=== PATIENT | male | born 1980 | race Caucasian/White ===

== ENCOUNTER 2017-06-23 16:50 | Inpatient (IN) | payer OTHER ==
[~2017-06-23] VITALS: Ht 188 cm; Wt 103.4 kg
[~2017-06-23 16:50] MED LIST: HYDR-4003 PO
[2017-06-23 16:57] VITALS: BP 123/79; PULSE 82; RESP 18; O2SAT 98
[2017-06-23 17:27] LABS: BASOPHILS % (AUTO) 0.3 % (0-3); EOSINOPHILS % (AUTO) 1.1 % (0-5); MONOCYTES % (AUTO) 9.9 % (4-12); Mean Corpuscular Hemoglobin 30.1 pg (27.0-35.0); Mean Corpuscular Volume 88.7 fL (81-100); NEUTROPHILS % (AUTO) 65.7 % (40-74); Platelet Count 368 bil/L (150-400)
[2017-06-23 17:44] LABS: Magnesium 2.1 mg/dL (1.6-2.6)
[2017-06-23 17:59] LABS: APPEARANCE,URINE CLEAR (CLEAR,HAZY); COLOR,URINE YELLOW (YELLOW)
[2017-06-23 18:00] LABS: OCCULT BLOOD,URINE SMALL (NEGATIVE); UROBILINOGEN,URINE NORMAL (NORMAL)
--- NOTE | 2017-06-23 18:07 | ED.REPORT ---
HPI-Abd Pain M Under 38 Date of Service Jun 23, 2017 ED Provider: Dr. Galloway Pt is a 37 y/o male w/ a hx of recent diverticulitis presenting to the ED c/o suprapubic abdominal pain onset this morning. He was diagnosed with diverticulitis by CT scan about 2 weeks ago and was given Cipro and Flagyl which he finished the courses of 2 days ago. At that time he was experiencing LLQ abdominal pain. This morning he woke up experiencing suprapubic abdominal pain described as a constant dull pain which is exacerbated by movement. His pain feels similar to his recent episode of diverticulitis although it is in a different condition. He c/o associated anorexia, mild lightheadedness. Pt denies any urinary symptoms, fever, chills, nausea, vomiting, cough, SOB. Nursing Notes Stated Complaint: ABDOMINAL PAIN Chief Complaint: Male Abdominal Pain Nursing Notes Reviewed: Yes Allergies: Coded Allergies: Penicillins (Verified Allergy, Unknown, 10/08/16) No Active Prescriptions or Reported Meds General Time Seen by MD: 18:06 Chief Complaint Abdominal pain Hx Obtained From: Patient Arrived By: Walk-in Sudden in Onset?: No Onset Occurred: 5 - 8 hours ago Symptom Duration: Constant Progression since Onset: Constant Location: : Suprapubic Quality: Dull Severity: Current: Moderate Severity: Maximum: Moderate Exacerbated by: Movement Relieved by: Remaining still Context Related History: Reports: Diverticulosis Recent Healthcare: No recent hospitalization, Recent doctor visit, Recent testing, Previous diagnosis Similar Sx Previous: Yes Past Medical History Past Medical History History of diverticulitis Past Surgical History T&A Family History Noncontributory Smoking History Unknown if Ever Smoker Social History Alcohol Use: "Social" Drug Use: Denies drug use Other Social History: Good social support, Local resident Ambulatory Status Independent Review of Systems Constitutional: Denies: Chills, Fever Respiratory: Denies: Non-productive cough, Shortness of breath GI: Reports: Abdominal pain, Anorexia, Denies: Nausea, Vomiting Male: Denies Dysuria Complete sys rev & neg: except as marked. Neurologic: Reports: Lightheaded Physical Exam Initial Vital Signs Vital Signs (First) Date Time Temp Pulse Resp B/P Pulse Ox O2 Delivery O2 Flow Rate FiO2 06/23/17 16:57 36.5 82 18 123/79 98 Room Air Initial VS: Reviewed, Vital signs normal Head / Eyes: Atraumatic, Normocephalic ENT: Mucous membranes moist, Conjunctiva normal, No scleral icterus Neck: Supple, Full range of motion Extremities: Vascular intact, Neuro intact, No swelling Skin: Warm, Dry, No cyanosis Neurologic: Alert, Oriented Psychiatric: Mood/affect normal, Behavior normal General/Constitutional: Awake, Alert, No acute distress, Well appearing, Cooperative, Not toxic appearing Respiratory / Chest: Breath sounds NL, Breath sounds = bilat, No respiratory distress, No rales, No rhonchi, No wheezing, No stridor Cardiovascular: Heart rate NL, Regular rhythm, Heart sounds NL, No murmurs Abdomen: Atraumatic, Soft, No distention Tenderness/Guarding/Rebound: Positive: Tender diffuse Gaurding to the diffuse lower abdomen Decreased bowel sounds No inguinal mass Back: Full range of motion, Painless range of motion Interpretation & Diagnostics Lab Results Interpretation Result Diagram: 06/23/17 1711 06/23/17 1711 Test 06/23/17 17:11 06/23/17 17:30 White Blood Count 12.0th/mm3 (3.8-10.1) Red Blood Count 5.31mil/mm3 (4.40-5.80) Hemoglobin 16.0g/dL (13.8-17.2) Hematocrit 47.1% (41.0-50.0) Mean Corpuscular Volume 88.7fL (81-100) Mean Corpuscular Hemoglobin 30.1pg (27.0-35.0) Mean Corpuscular Hemoglobin Concent 34.0% (32.0-37.0) Red Cell Distribution Width 12.3% (12.3-15.4) Platelet Count 368bil/L (150-400) Neutrophils (%) (Auto) 65.7% (40-74) Lymphocytes (%) (Auto) 22.7% (14-46) Monocytes (%) (Auto) 9.9% (4-12) Eosinophils (%) (Auto) 1.1% (0-5) Basophils (%) (Auto) 0.3% (0-3) Sodium Level 137mEq/L (134-144) Potassium Level 4.2mEq/L (3.5-5.2) Chloride Level 101mEq/L (97-108) Carbon Dioxide Level 20mmol/L (18-29) Blood Urea Nitrogen 14mg/dL (6-20) Creatinine 0.98mg/dL (0.76-1.27) Estimat Glomerular Filtration Rate 91mL/min (>59) Glucose Level 103mg/dL (60-99) Calcium Level 9.2mg/dL (8.5-10.1) Magnesium Level 2.1mg/dL (1.6-2.6) Total Bilirubin 0.5mg/dL (0.0-1.2) Aspartate Amino Transf (AST/SGOT) 18U/L (0-50) Alanine Aminotransferase (ALT/SGPT) 20U/L (0-44) Alkaline Phosphatase 46U/L (25-150) Total Protein 7.8g/dL (6.4-8.4) Albumin 4.2g/dL (3.4-5.0) Lipase 31U/L (13-60) Hold Lujan Top Tube Received (Received) Urine Color Yellow (YELLOW) Urine Appearance Clear (CLEAR,HAZY) Urine pH 6.0 (5.0-8.0) Urine Specific [place] 1.025 (1.003-1.035) Urine Protein Tracemg/dL (NEG,TRACE) Urine Glucose (UA) Negativemg/dL (NEGATIVE) Urine Ketones Negativemg/dL (NEGATIVE) Urine Occult Blood Small (NEGATIVE) Urine Nitrite Negative (NEGATIVE) Urine Bilirubin Negative (NEGATIVE) Urine Urobilinogen Normalmg/dL (NORMAL) Urine Leukocyte Esterase Negative (NEGATIVE) Urine RBC 3-10/hpf (0-2) Urine WBC 0-5/hpf (0-5) Urine Epithelial Cells Occasional/hpf (NONE-MOD) Urine Crystals None seen (NONE SEEN) Urine Bacteria Few/hpf (NONE-FEW) Urine Hyaline Casts None/lpf (NONE) Urine Granular Casts None seen (NONE SEEN) Urine Waxy Casts None seen (NONE SEEN) Urine Red Blood Cell Casts None seen (NONE SEEN) Urine White Blood Cell Casts None seen (NONE SEEN) Urine Mucus Present (None Seen) Urine Trichomonas None seen (NONE SEEN) Urine Yeast None (NONE SEEN) Urinalysis Comment None Urine Culture Reflexed Not indicated CT Abd / Pelvis Interpretation IMPRESSION: 1. Acute sigmoid diverticulitis with possible contained microperforation and associated phlegmon. Low-density within the sigmoid colonic wall may represent a small intramural abscess or further phlegmon. There are no drainable fluid collections. 2. Small bowel adynamic ileus. Dictated by: Wale Aguirre M.D. on 06/23/2017 at 19:24 Approved by: Wale Aguirre M.D. on 06/23/2017 at 19:31 Study type: Abdominal CT IV contrast Interpretation / Wet Read by: Interpret - Radiologist Re-Eval/Medical Decision Med Decision/Clinical Course This patient finished a course of antibiotics a couple of days ago for diverticulitis and presents with increasing pain with guarding on exam. He is EKG shows worsening diverticulitis, so he will be admitted for IV antibiotics. They attempted to contact the surgeon Dr. Godwin however my call was not returned. Re-Evaluation/Progress : Time of Eval: 19:54 Re-Evaluation/Progress Note: Pt rechecked. Discussed CT findings. Informed pt of plan for admission. Pt. understands and agrees with plan for admission. All questions addressed. Consultation : Referral / Consult Name: Kirill Villanueva MD Consulted With: Hospitalist Call Returned at: 20:20 Lead Advisor: Will see patient, Agrees with eval, Agrees with plan, Accepts admit Note: Requests surg consult. Counseled Regarding: Diagnosis, Lab results, Need for admission Patient Discharge & Departure Primary Impression: Diverticulitis Diverticulitis site: unspecified part of intestinal tract Diverticulitis bleeding: without bleeding Diverticulitis complication: with perforation and abscess Qualified Code: K57.80 - Diverticulitis of intestine, part unspecified , with perforation and abscess without bleeding Additional Impression: Failure of outpatient treatment Disposition: ADMITTED TO HOSPITAL Discharge Condition All VS Reviewed: Yes Condition: Stable Referrals: NOPCP (PCP) Scribe Attestation Portions of this note were transcribed by Renata Fox and Carlos Kasper. I, Dr. Galloway personally performed the history, physical exam and medical decision- making; I reviewed and confirmed the accuracy of the information in the transcribed note. Signed by: Anselmo Gonzalez, 06/23/17 Tiffanie Galloway MD Jun 23, 2017 18:07 Renata Fox Jun 23, 2017 18:18 CARLOS KASPER Jun 23, 2017 18:40
[2017-06-23] MEDS ORDERED: Ondansetron 2 mg/mL 2 mL Inj IVPUSH PRN ×2 (18:35→20:50)
[2017-06-23] MEDS ORDERED: 0.9% Sodium Chloride 1,000 ML IV ONE (18:35)
[2017-06-23] MEDS: HYDROmorphone 0.5 mg/0.5 mL iSecure Syringe IVPUSH PRN ×3 (19:01→22:04)
--- NOTE | 2017-06-23 19:32 | DRSVH ---
PROCEDURE: CT ABDOMEN AND PELVIS WITH CONTRAST (PNL-7102) INDICATIONS: sudden increase in pain recent divirticulitis TECHNIQUE: After the administration of intravenous contrast, 5 mm thick sections acquired from the diaphragm to the symphysis. 5 mm coronal and sagittal reformats were acquired. For radiation dose reduction, the following was used: automated exposure control, adjustment of mA and/or kV according to patient siz e. COMPARISON: None. FINDINGS: Image quality: Excellent. ABDOMEN: Lung bases: Lung bases are clear. Heart size is normal. Solid organs: Liver and spleen are normal in size and enhancement. Gallbladder is present. Biliary system is non dilated. Pancreas enhances normally. No adrenal nodules. Kidneys demonstrate normal size and enhancement, without hydronephrosis. Peritoneum and bowel: Acute sigmoid diverticulitis with tiny microperforation (se 2 im 76) and promin ent associated phlegmon measuring in aggregate 3.5 x 4.4 x 3.9 CM. There is a low density 1.4 cm poss ible colonic mural fluid collection which may represent a small intramural abscess too small percutan eous drainage or further phlegmon. Minimal fluid filled distention of multiple loops of small bowel w ithout discrete transition point consistent with an adynamic ileus. Normal appendix. Stomach is decom pressed but otherwise normal. Nodes and vessels: No retroperitoneal or mesenteric adenopathy by size criteria. Aorta and inferior vena cava are normal in size. Miscellaneous: No ventral hernias. PELVIS: Genitourinary: Bladder wall thickness is normal. Miscellaneous: No inguinal hernias or adenopathy. Bones: No suspicious bony lesions. No vertebral body compression fractures. IMPRESSION: 1. Acute sigmoid diverticulitis with possible contained microperforation and associated phlegmon. Low -density within the sigmoid colonic wall may represent a small intramural abscess or further phlegmon . There are no drainable fluid collections. 2. Small bowel adynamic ileus. Dictated by: Wale Aguirre M.D. on 06/23/2017 at 19:24 Approved by: Wale Aguirre M.D. on 06/23/2017 at 19:31
[2017-06-23] MEDS ORDERED: Ertapenem Inj 1,000 MG in 0.9% Sodium Chloride 50 ML IV ONE (19:55)
[2017-06-23] MEDS ORDERED: Alum-Mag Hydrox-Simeth 30 mL Suspension PO PRN (20:50)
[2017-06-23] MEDS ORDERED: Polyethylene Glycol (PEG) 17 Gm Powder PO PRN (20:50)
[2017-06-23 20:54] VITALS: BP 116/66; PULSE 61; RESP 16; O2SAT 97
[2017-06-23] MEDS ORDERED: Piper-Tazo 3.375 Gm/50 mL D5W Minibag Plus - Q8H over 4 hrs IV ONE ×2 (21:00)
[2017-06-23 21:01] VITALS: BP 116/66; PULSE 61; RESP 16; O2SAT 97
[2017-06-23 21:55] VITALS: BP 126/81; PULSE 61; RESP 17; O2SAT 97
[2017-06-23] MEDS: 0.9% Sodium Chloride 1,000 ML IV SCH (22:08)
[2017-06-24] MEDS: Heparin 5,000 Unit/mL Inj SUBQ SCH ×3 (00:20→16:14)
--- NOTE | 2017-06-24 00:21 | PCM.HPMED ---
Subjective Date of Service Jun 24, 2017 Primary Provider: Admitting Physician: Kirill Villanueva MD Primary Care Physician: Daniel Mancuso MD Attending Physician: Kirill Villanueva MD Chief Complaint: Suprapubic left lower quadrant pain History of Present Illness: Shreyas Rahman is a pleasant 37-year-old gentleman with history of diverticulitis , had recurrence of 2 weeks ago and treated with ciprofloxacin and metronidazole which he completed 2 days ago. He had recurrence of his left lower quadrant abdominal pain and this morning woke up experiencing suprapubic abdominal pain worse when he moved. He endorses loss of appetite, no longer lightheaded or dizzy, no chest pain, no shortness of breath, no numbness tingling weakness in his arms and legs, no dysuria no diarrhea or constipation. He received a CT scan in the emergency department which showed continued diverticulitis with possible contained microperforation and associated phlegmon , and small bowel adynamic ileus. Your white blood cell count 12.0, blood glucose of 103, lipase negative, liver enzymes normal, urinalysis negative for signs of infection, however was positive for 3-10 urine red blood cells under microscopy. Vitals are stable, afebrile. He denies any fevers or chills, no flank pain. Review of Systems: A comprehensive review of systems was conducted with the patient and found to be negative except as above in the history of presenting illness. Allergies Coded Allergies: Penicillins (Verified Allergy, Unknown, 10/08/16) Home Medications Reportedly none. PMH Diverticulitis diagnosed at age 24 Hemorrhoids Tobacco use Surgical History Tonsillectomy [place] tooth extraction Upper and lower endoscopy the age of 24 Family History Father at age 46 from stomach cancer Mother is 59 years old alive and well. Social History Occupation: bud-tender at [employer] Hx Alcohol Use: Yes (social) Hx Substance Use: Yes (marijuana - daily) Hx Tobacco Use: Yes Smoking Status: Current Every Day Smoker (1 pack a day for since 18 years old) , Unknown if Ever Smoker Exam Vital Signs Vital Sign - Last Date Time Temp Pulse Resp B/P Pulse Ox O2 Delivery O2 Flow Rate FiO2 06/23/17 21:55 36.8 61 17 126/81 97 Room Air Intake and Output 06/23/17 06/23/17 06/24/17 Cumulative From/Thru 15:00 23:00 07:00 06/23/17 16:57 - 06/23/17 22:00 Intake Total 1000 ml 1000 ml Balance 1000 ml 1000 ml Intake IV Total 1000 ml 1000 ml Exam General: Laying in bed, no apparent distress. HEENT: Normocephalic, atraumatic, EOMI grossly, mucous members moist, neck supple without lymphadenopathy conjunctivae are pink. Cardiovascular: Regular rate and rhythm, no clicks murmurs rubs, peripheral pulses 2/4 equal bilaterally Pulmonary: Clear to auscultation bilaterally, no W/R/R. Abdominal: Abdomen is diffusely tender more so in the left lower quadrant, negative rebound, no discoloration, no masses. Extremities: No edema appreciated. No tenderness, asymmetry. Peripheral IV and right antecubital fossa Neuro: Neurologically grossly intact, strength is equal bilaterally upper and lower extremities. MSK: Able to move extremities on their own volition, strength 5 out of 5 equal bilaterally to upper and lower extremities. Psych: A and O 4, appropriate mood and affect. Lab and Diagnostics Result Diagram: 06/23/17 1711 06/23/17 1711 X-Rays, CTs and MRIs Abdomen pelvis with contrast performed 06/23/2017 IMPRESSION: 1. Acute sigmoid diverticulitis with possible contained microperforation and associated phlegmon. Low-density within the sigmoid colonic wall may represent a small intramural abscess or further phlegmon. There are no drainable fluid collections. 2. Small bowel adynamic ileus. Dictated by: Wale Aguirre M.D. on 06/23/2017 at 19:24 Assessment & Plan Otherwise healthy 37-year-old male with history of diverticulitis presents after having recurrence of symptoms after having 2 weeks of oral antibiotics therapy with Flagyl and ciprofloxacin. He is stable, afebrile, with mild leukocytosis, admitted for parenteral antibiotics and fluids. Acute diverticulitis, failure of outpatient treatment, present on admission, active. CT scan of abdomen demonstrated microperforation continued diverticuli. Intravenous Zosyn. IV normal saline 100 mL per hour Make nothing by mouth Hydromorphone IV every 4 hours as needed for pain. Medical management at this point, surgery to be notified if continued failure with medical therapy. Acute leukocytosis, present on admission, active Attributed to diverticulitis as above. Monitor with a.m. labs Penicillin allergy discussed with patient, was told he had a reaction when he was a child, has had taken amoxicillin in the past without consequence. Informed patient about medication choices and was okay with the risk. Nicotine dependence Cessation discussed and encouraged Nicotine patch upon patient's request GI prophylaxis not indicated, patient currently nothing by mouth DVT prophylaxis with subcutaneous heparin every 8 hours Pain management hydromorphone Patient admitted to inpatient status with anticipated length of stay greater than two midnights based on diagnosis, treatment plan, and risk of adverse events. CODE STATUS: Patient is FULL CODE. Pain Evaluation: Adequate Pain Control GI Prophylaxis: Not indicated VTE Prophylaxis: Sub-Q Heparin (Unfractionated) Resuscitation Status: CPR: Attempt Resuscitation Attending Statement The patient was seen and examined together with Dr. Hou on 06/23 and I agree with the history, exam and plan as outlined in the note above. Luis Alberto Liu DO Jun 24, 2017 00:21 Kirill Villanueva MD Jun 24, 2017 01:28
[2017-06-24] MEDS: HYDROmorphone 1 mg/mL Inj IVPUSH PRN ×8 (00:26→23:00)
[2017-06-24 01:57] VITALS: BP 118/70; PULSE 66; RESP 17; O2SAT 97
--- NOTE | 2017-06-24 03:58 | CONS ---
[address] [address] CONSULTATION REPORT PATIENT: MELCHOR HUI : 1980 MR#: [id number] ADMIT: 06/23/2017 JOB ID: [id number] DATE OF SERVICE: 06/23/2017 CHIEF COMPLAINT: Abdominal pain. HISTORY OF PRESENT ILLNESS: I am asked to evaluate the patient at the request of Dr. Tiffanie Galloway in the emergency department. The patient has a history of early onset diverticulitis. His first episode was when he was 23 years old. This was successfully managed with a single course of oral outpatient antibiotics. Following that episode, he underwent a colonoscopy as well as upper endoscopy, and no signs of inflammatory bowel disease were seen. He was well for the next 15 years until approximately a week and a half ago, on Monday. He then developed an episode of left lower quadrant abdominal pain, and generally not feeling well. He was treated with an oral course of Cipro and Flagyl and he improved. He completed his antibiotics on Monday of this week. Today he developed new onset of stabbing lower abdominal pain which had moved more to his lower midline. He has not had any fevers. He denies vomiting or nausea. He does have some discomfort with urination, but no blood in the urine, no pneumaturia. He has had no blood in his stool. He has lost approximately 10 pounds through this illness. He is a smoker, smoking approximately one pack of cigarettes per day. PAST MEDICAL HISTORY: Sigmoid diverticulitis. PAST SURGICAL HISTORY: Tonsillectomy. MEDICATIONS: None. ALLERGIES: PENICILLINS. SOCIAL HISTORY: Smokes one pack of cigarettes per day. He drinks alcohol socially and denies illicit drug use. 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 FAMILY HISTORY: His father had gastric cancer and in his 40s. REVIEW OF SYSTEMS: A 10-point review of systems is negative except as described in history of present illness, specifically negative for fevers or chills. PHYSICAL EXAMINATION: Vital Signs: Body mass index 29.4, temperature 36.8, pulse 61, blood pressure 126/81, saturation 97% on room air. In general, he is sitting up in bed, in no acute distress. HEENT: Sclerae are anicteric. Mucous membranes are moist. Neck: No lymphadenopathy. Chest is clear. Heart: Regular rate and rhythm. No murmurs. Abdomen is obese, but soft, nondistended. He has fairly significant focal tenderness to palpation in the lower abdomen with some guarding, no palpable masses. There are no hernias. Extremities: No edema. Neuro: No deficits. Psychiatric: Affect is appropriate. LABORATORIES: White count is 12.0, hematocrit 47.1, platelets 368. Creatinine 0.98, glucose 103, albumin 4.2. Urinalysis is negative. IMAGING: CT of the abdomen and pelvis with contrast shows acute sigmoid diverticulitis with a contained microperforation and associated phlegmon. The phlegmon measures 3.5 x 4.4 x 3.9 cm. There is no drainable abscess. ASSESSMENT/PLAN: A 37-year-old man with acute sigmoid diverticulitis with microperforation. We have discussed the pathophysiology of diverticular disease. At this point, I do not recommend surgical intervention. I recommend conservative management with bowel rest and broad-spectrum IV antibiotics. He was recommended only to take a limited amount of clear liquids by mouth for moistening his mouth, but really do not take much by mouth until he is clinically improved. Indications for surgery would be obstruction of the colon, fistula, free perforation, bleeding, failure to improve with conservative management. He is in agreement with the plan. All his questions were answered.
[2017-06-24] MEDS: Piper-Tazo 3.375 Gm/50 mL D5W Minibag Plus - Q8H over 4 hrs IV SCH ×6 (04:28→21:05)
[2017-06-24 04:45] VITALS: BP 112/76; PULSE 55; RESP 17; O2SAT 96
--- NOTE | 2017-06-24 05:40 | NUR ---
Admit Note Received telephone reports from ED nurse Rosalino at 2100, Pt. arrived at the unit approx 2200 via gurney accompanied by ED staff, Alert and oriented, able to transfer to bed independently, steady on feet, oriented to rm and call light, c/o lower abd pain, administered prn IV dilaudid with a report of relief, VSS afebrile, hourly checks, will continue to monitor.
[2017-06-24] MEDS: 0.9% Sodium Chloride 1,000 ML IV SCH ×2 (07:46→16:15)
[2017-06-24 08:00] VITALS: BP 114/68; PULSE 62; RESP 16; O2SAT 98
[2017-06-24 08:19] LABS: BASOPHILS % (AUTO) 0.5 % (0-3); EOSINOPHILS % (AUTO) 2.3 % (0-5); Mean Corpuscular Hemoglobin 30.5 pg (27.0-35.0); Mean Corpuscular Volume 90.6 fL (81-100); NEUTROPHILS % (AUTO) 57.6 % (40-74); Platelet Count 304 bil/L (150-400)
--- NOTE | 2017-06-24 10:04 | PCM.PNSURG ---
Subjective Date of Service: Jun 24, 2017 Visit Information: Reason for Visit Diverticulitis Surgery/Surgery Date Post-Op Day # Date of Admission: Jun 23, 2017 at 20:38 Hospital Day # Subjective: No acute overnight events Patient reports his pain is mildly worsened compared to yesterday NO fevers or chills Denies nausea Objective Vital Sign- Last 8 Hours Date Time Temp Pulse Resp B/P Pulse Ox O2 Delivery O2 Flow Rate FiO2 06/24/17 04:45 36.7 55 17 112/76 96 Room Air Intake and Output- Last 8 Hour 06/24/17 Cumulative From/Thru 07:00 06/23/17 16:57 - 06/24/17 06:29 Intake Total 816 ml 1816 ml Output Total 250 ml 250 ml Balance 566 ml 1566 ml Intake IV Total 816 ml 1816 ml Output Urine Total 250 ml 250 ml General: Alert, Cooperative, No Acute Distress Neck: Supple Lungs: Normal Air Movement Heart: Regular Rate/Rhythm Abdomen: Other (Soft and nondistended. Tender in suprapubic region with voluntary guarding. Not peritonitic.) Extremities: Warm Result Diagram: 06/24/17 0800 06/24/17 0800 Assessment & Plan Impression 37M with recurrent diverticulitis with phlegmon and microperforation. He remains symptomatic despite bowel rest and IV antibiosis overnight but is not peritonitic, has a normalizing WBC of 10k, and is hemodynamically normal. Problems: Plan - No indication for surgery at this time - Continue broad spectrum abx - Continue bowel rest (sips of clears ok for comfort) - Serial abdominal exams - Surgery will continue to follow VTE Prophylaxis: Sub-Q Heparin (Unfractionated) Resuscitation Status: CPR: Attempt Resuscitation Attending Statement: I examined this patient and agree with the note above. MD Yeison Tobias Samuel J MD Jun 24, 2017 10:04 Socorro Sagastume MD Jun 25, 2017 09:15
[2017-06-24 13:03] VITALS: BP 110/72; PULSE 61; RESP 16; O2SAT 98
--- NOTE | 2017-06-24 14:10 | PCM.PNMED ---
Subjective Date of Service Jun 24, 2017 Subjective Continued abdominal pain. Denies any other new issues/complaints Exam Vital Signs Vital Sign - Last Date Time Temp Pulse Resp B/P Pulse Ox O2 Delivery O2 Flow Rate FiO2 06/24/17 13:03 36.6 61 16 110/72 98 Room Air Intake and Output 06/23/17 06/23/17 06/24/17 Cumulative From/Thru 15:00 23:00 07:00 06/23/17 16:57 - 06/24/17 06:29 Intake Total 1000 ml 816 ml 1816 ml Output Total 250 ml 250 ml Balance 1000 ml 566 ml 1566 ml Intake IV Total 1000 ml 816 ml 1816 ml Output Urine Total 250 ml 250 ml General: Alert, Cooperative, No Acute Distress Head: Normal Eyes: Scleral Anicteric Nose: Mucous Membr Moist/[place] Mouth: Mucous Membr Moist/[place] Neck: Supple Chest & Lungs: Chest Wall Normal Cardiovascular: Regular Rate/Rhythm Pulses: NL carotid, radial, femoral, DP, PT Abdomen: Tender, Non-distended, Normoactive bowel tones, Soft Extremities: No cyanosis/clubbing/edma bilat Neurological: Grossly Neurologically Intact, Normal Speech IVs and Medications Medications Reviewed: Medications were reviewed in detail Lab and Diagnostics Result Diagram: 06/24/17 0800 06/24/17 0800 X-Rays, CTs and MRIs Date of Service: 06/23/17 1834 PROCEDURE: CT ABDOMEN AND PELVIS WITH CONTRAST (PNL-7102) IMPRESSION: 1. Acute sigmoid diverticulitis with possible contained microperforation and associated phlegmon. Low-density within the sigmoid colonic wall may represent a small intramural abscess or further phlegmon. There are no drainable fluid collections. 2. Small bowel adynamic ileus. Dictated by: Wale Aguirre M.D. on 06/23/2017 at 19:24 Approved by: Wale Aguirre M.D. on 06/23/2017 at 19:31 Assessment & Plan Otherwise healthy 37-year-old male with history of diverticulitis presents after having recurrence of symptoms after having 2 weeks of oral antibiotics therapy with Flagyl and ciprofloxacin. # Acute diverticulitis, failure of outpatient treatment, present on admission, active. - CT scan of abdomen demonstrated microperforation continued diverticuli. - Appreciate surgery consult. Will followup with recs. - Continue with intravenous Zosyn. - Clear liquid diet - Hydromorphone IV every 4 hours as needed for pain. # Acute leukocytosis, present on admission, improving - Attributed to diverticulitis as above. # Reported Penicillin allergy. Tolerating Zosyn # Nicotine dependence - Cessation discussed and encouraged per admit note - Nicotine patch Dispo: 2-3 days GI Prophylaxis: Not indicated VTE Prophylaxis: Sub-Q Heparin (Unfractionated) Resuscitation Status: CPR: Attempt Resuscitation Ned Goyal Jun 24, 2017 14:10
[2017-06-24 16:00] VITALS: BP 117/76; PULSE 60; RESP 16; O2SAT 97
--- NOTE | 2017-06-24 16:26 | NUR ---
Shift Note Shreyas had a good day. Family came to visit and spend time with him. He is feeling that the 1mg of Dilaudid approximately q3hrs is aiding his abdominal pain. VSS. Encouraged him to walk when he felt pain level was down. Receiving abx.
[2017-06-24 20:25] VITALS: BP 114/73; PULSE 83; RESP 18; O2SAT 100
[2017-06-25] MEDS: Heparin 5,000 Unit/mL Inj SUBQ SCH ×3 (00:38→16:50)
[2017-06-25 00:48] VITALS: BP 112/69; PULSE 64; RESP 16; O2SAT 96
[2017-06-25] MEDS: HYDROmorphone 1 mg/mL Inj IVPUSH PRN ×7 (02:44→23:00)
[2017-06-25] MEDS: 0.9% Sodium Chloride 1,000 ML IV SCH (04:57)
[2017-06-25] MEDS: Piper-Tazo 3.375 Gm/50 mL D5W Minibag Plus - Q8H over 4 hrs IV SCH ×6 (04:58→21:29)
[2017-06-25 05:56] VITALS: BP 112/70; PULSE 64; RESP 16; O2SAT 96
--- NOTE | 2017-06-25 06:24 | NUR ---
Abdominal Pain Pt. continues to have abdominal pain during this shift relieved by Dilaudid. He had some nausea this am and requested/received Zofran which was effective. VSS and he is in good spirits hoping to discharge today.
[2017-06-25 07:50] LABS: BASOPHILS % (AUTO) 0.4 % (0-3); EOSINOPHILS % (AUTO) 1.9 % (0-5); MONOCYTES % (AUTO) 12.7 % (4-12); Mean Corpuscular Hemoglobin 30.7 pg (27.0-35.0); NEUTROPHILS % (AUTO) 60.4 % (40-74); Platelet Count 292 bil/L (150-400)
[2017-06-25 09:21] VITALS: BP 118/78; PULSE 64; RESP 16; O2SAT 99
--- NOTE | 2017-06-25 10:00 | PCM.PNSURG ---
Subjective Date of Service: Jun 25, 2017 Visit Information: Reason for Visit Diverticulitis Surgery/Surgery Date Post-Op Day # Date of Admission: Jun 23, 2017 at 20:38 Hospital Day # Subjective: No acute overnight events WBC 10.8-->11.6 today Patient reports his pain is improved compared to yesterday No nausea, fevers, or chills Taking minimal PO intake of clear liquids Objective Vital Sign- Last 8 Hours Date Time Temp Pulse Resp B/P Pulse Ox O2 Delivery O2 Flow Rate FiO2 06/25/17 09:21 36.9 64 16 118/78 99 Room Air 06/25/17 05:56 36.5 64 16 112/70 96 Room Air Intake and Output- Last 8 Hour 06/25/17 Cumulative From/Thru 06:58 06/23/17 16:57 - 06/25/17 05:55 Intake Total 1454 ml 4454 ml Output Total 1250 ml 2775 ml Balance 204 ml 1679 ml Intake Oral 400 ml 400 ml IV Total 1054 ml 4054 ml Output Urine Total 1250 ml 2775 ml General: Alert, Cooperative, No Acute Distress Neck: Full Range of Motion Lungs: Normal Air Movement Abdomen: Soft, Non-distended (Mildly tender in suprapubic area and LLQ, improved compared to yesterday) Extremities: Warm Neuro: Grossly Neurologically Intact Result Diagram: 06/25/17 0710 06/25/17 0710 Assessment & Plan Impression 37M with recurrent sigmoid diverticulitis presenting with phlegmon and microperforation. He is not septic nor peritonitic and his pain has subjectively improved today. However, his leukocytosis persists and is mildly increased today to 11k. Problems: Plan - Given his improved abodminal exam and subjective pain, there is no indication for surgery - However, given his persistent leukocytosis he should remain NPO (except for sips/chips for comfort) and on broad spectrum antibiotics - Will obtain initial CT at outside facility to compare to most recent imaging - Please trend CBC daily - Surgery will continue to follow. Please do not hesitate to call with questions or concerns. I examined this patient and I agree with the note as dictated above. Socorro Sagastume MD VTE Prophylaxis: Sub-Q Heparin (Unfractionated) Resuscitation Status: CPR: Attempt Resuscitation Cm Latham MD Jun 25, 2017 10:00 Socorro Sagastume MD Jun 30, 2017 16:40
[2017-06-25 12:00] VITALS: BP 108/61; PULSE 66; RESP 16; O2SAT 97
--- NOTE | 2017-06-25 13:57 | PCM.PNMED ---
Subjective Date of Service Jun 25, 2017 Subjective Continued abdominal pain but slowly improving. Denies any other new issues/ complaints Exam Vital Signs Vital Sign - Last Date Time Temp Pulse Resp B/P Pulse Ox O2 Delivery O2 Flow Rate FiO2 06/25/17 09:21 36.9 64 16 118/78 99 Room Air Intake and Output 06/24/17 06/24/17 06/25/17 Cumulative From/Thru 15:00 23:00 07:00 06/23/17 16:57 - 06/25/17 05:55 Intake Total 1184 ml 1454 ml 4454 ml Output Total 650 ml 625 ml 1250 ml 2775 ml Balance -650 ml 559 ml 204 ml 1679 ml Intake Oral 400 ml 400 ml IV Total 1184 ml 1054 ml 4054 ml Output Urine Total 650 ml 625 ml 1250 ml 2775 ml Exam General: Alert, Cooperative, No Acute Distress Head: Normal Eyes: Scleral Anicteric Nose: Mucous Membr Moist/[place] Mouth: Mucous Membr Moist/[place] Neck: Supple Chest & Lungs: Chest Wall Normal. CTA bilat Cardiovascular: Regular Rate/Rhythm Pulses: NL carotid, radial, femoral, DP, PT Abdomen: Tender, Non-distended, Normoactive bowel tones, Soft Extremities: No cyanosis/clubbing/edema bilat Neurological: Grossly Neurologically Intact, Normal Speech IVs and Medications Medications Reviewed: Medications were reviewed in detail Lab and Diagnostics Result Diagram: 06/25/17 0710 06/25/17 0710 X-Rays, CTs and MRIs Date of Service: 06/23/17 1834 PROCEDURE: CT ABDOMEN AND PELVIS WITH CONTRAST ([id number]) IMPRESSION: 1. Acute sigmoid diverticulitis with possible contained microperforation and associated phlegmon. Low-density within the sigmoid colonic wall may represent a small intramural abscess or further phlegmon. There are no drainable fluid collections. 2. Small bowel adynamic ileus. Dictated by: Wale Aguirre M.D. on 06/23/2017 at 19:24 Approved by: Wale Aguirre M.D. on 06/23/2017 at 19:31 Assessment & Plan Otherwise healthy 37-year-old male with history of diverticulitis presents after having recurrence of symptoms after having 2 weeks of oral antibiotics therapy with Flagyl and ciprofloxacin. # Acute diverticulitis, failure of outpatient treatment, present on admission, active. - CT scan of abdomen demonstrated microperforation continued diverticuli. - Appreciate surgery consult. Will followup with recs. - Continue with intravenous Zosyn. - Advancement of diet will be deferred to surgery recs - Hydromorphone IV every 4 hours as needed for pain. # Acute leukocytosis, present on admission, improving - Attributed to diverticulitis as above. # Reported Penicillin allergy. Tolerating Zosyn # Nicotine dependence - Cessation discussed and encouraged per admit note - Nicotine patch Dispo: 2-3 days GI Prophylaxis: Not indicated VTE Prophylaxis: Sub-Q Heparin (Unfractionated) Resuscitation Status: CPR: Attempt Resuscitation Ned Goyal Jun 25, 2017 13:56
[2017-06-25] MEDS: Dextrose 5% 0.45% NaCl 1,000 ML IV SCH (15:07)
[2017-06-25 16:00] VITALS: BP 118/80; PULSE 67; RESP 16; O2SAT 98
--- NOTE | 2017-06-25 17:36 | NUR ---
Shift Report Surgery team talked with patient and today about plan. Will continue abx and monitoring WBC count for now. NPO continues. VSS. Dilaudid continues at q3hr intervals.
[2017-06-25 20:30] VITALS: BP 120/81; PULSE 60; RESP 18; O2SAT 99
[2017-06-26] MEDS: Heparin 5,000 Unit/mL Inj SUBQ SCH ×2 (00:36→08:08)
[2017-06-26 00:52] VITALS: BP 115/73; PULSE 49; RESP 16; O2SAT 98
[2017-06-26] MEDS: Dextrose 5% 0.45% NaCl 1,000 ML IV SCH ×2 (01:54→12:41)
[2017-06-26] MEDS: HYDROmorphone 1 mg/mL Inj IVPUSH PRN ×4 (01:55→11:12)
[2017-06-26] MEDS: Piper-Tazo 3.375 Gm/50 mL D5W Minibag Plus - Q8H over 4 hrs IV SCH ×2 (04:55)
[2017-06-26 05:00] VITALS: BP 117/79; PULSE 47; RESP 16; O2SAT 97
--- NOTE | 2017-06-26 05:37 | NUR ---
Surgery? Pt. is still waiting to find out if he will need surgery. He continues to be on IV ABO and NPO. Surgery will be by again this AM to talk about it. VSS and he is in good spirits.
[2017-06-26 06:39] LABS: Mean Corpuscular Volume 88.6 fL (81-100)
--- NOTE | 2017-06-26 08:12 | PROG NOTE ---
[address] [address] PROGRESS NOTE PATIENT: MELCHOR HUI : 1980 MR#: [id number] ADMIT: 06/23/2017 JOB ID: [id number] DATE: 06/26/2017 SUBJECTIVE: The patient is seen in followup. Today he feels about the same as yesterday, which is considerably better than admission on Monday. He has no nausea. He has no pain at rest, but just occasional twinges of discomfort in the left lower quadrant, which is short in duration. He is hungry. He is passing flatus, but has not had a bowel movement. OBJECTIVE: Temperature 36.4, pulse 47, blood pressure 117/79, saturation 97% on room air. In general, he is resting in bed in no acute distress. Chest is clear. Heart regular rate and rhythm, no murmurs. Abdomen is soft, nondistended. He is focally tender in the left lower quadrant and suprapubic area. There are no palpable masses. Bowel tones are present. LABORATORIES: White count is 8.7, hematocrit 40.5, platelets 320. ASSESSMENT AND PLAN: A 37-year-old man with sigmoid diverticulitis with microperforation. He is improving with conservative management. I think he should be discharged to home today on oral antibiotics. He should complete a total of 14 days of antibiotics. I would switch him to Augmentin as the best oral equivalent to the IV Zosyn that he has been getting. He should go home on MiraLAX. He should follow up with me in general surgery clinic in 1-2 weeks to see how things are going, as he does have some risk of having smoldering diverticulitis that does not improve completely. She is he will also keep his appointment with Dr. Walker in six weeks to discuss colonoscopy.
[2017-06-26 08:25] VITALS: BP 112/74; PULSE 52; RESP 16; O2SAT 100
[2017-06-26] MEDS ORDERED: Amoxicillin-Clav 875-125 mg Tablet PO SCH (08:30)
[2017-06-26] MEDS ORDERED: Polyethylene Glycol (PEG) 17 Gm Powder PO SCH (08:30)
--- NOTE | 2017-06-26 11:02 | NUR ---
Social Work-initial assessment/ readiness for discharge: Data:See initial assessment. Pt is a 37 y/o male who was admitted on 06/23/17 for diverticulitis per H&P. Pt's insurance is [employer] and PCP is Daniel Mancuso MD. EMR Reviewed. Pt's readmission score is 0. SW met with pt at bedside, SW role explained. Pt is alert and oriented x3. Pt resides at home with his where he remains independent with ADLs. Pt drives and does not use any DME. Pt has no HH or SNF history. Pt has no terminal computer operator care insurance or VA benefits. SW discussed DPOA/ advanced directive, this has not completed, SW provided him with information. Pt discussed in morning rounds, no concerned noted from MD regarding pt's capacity for self care. SW provided pt with discharge planning checklist and encouraged him to call with any questions, phone number provided. Pt's to provide transport home. No anticipated discharge needs. SW will continue to follow if needs arise. Assessment:pt who is independent at baseline. Plan:Pt to discharge home when medically stable via POV. No anticipated discharge needs. SW will continue to follow if needs arise. OBEY Garcia Addendum: 06/26/17 at 1107 by BASIA CROWELL Amended: Links added.
[2017-06-26] MEDS ORDERED: oxyCODONE-Acetamin 5-325 mg Tablet PO PRN (11:10)
[2017-06-26 13:20] VITALS: BP 138/93; PULSE 61; RESP 18; O2SAT 95
[2017-06-26] MEDS ORDERED: OXYC1TAB24 PO (14:09)
[2017-06-26] MEDS ORDERED: POLY17PO6 PO (14:09)
[2017-06-26] MEDS ORDERED: AGM875T PO (14:09)
--- NOTE | 2017-06-26 14:13 | PCM.DIMED ---
Discharge Instructions Date of Service Jun 26, 2017 Dates of Hospitalization Jun 23, 2017 at 20:38 Discharge Diagnosis Discharge Diagnosis # Acute diverticulitis and microperforation with associated abdominal pain. Present on admission. # Acute leukocytosis, present on admission. Resolved. # Reported Penicillin allergy. Tolerating Zosyn and Augmentin. # Nicotine dependence Diet Discharge Diet: No restrictions Activity Discharge Activity: No restrictions Call your provider Call your provider for: Fever or Chills, Shortness of breath, Bleeding, Vomitting, Excessive diarrhea Patient Instructions Patient Instructions Seek immediate medical attention if any new or worsening signs or symptoms occur. Follow-up plan 1. Followup with primary care provider in 3-5 days 2. Followup with surgery (Dr. Godwin) in 1-[address] [address] Follow-up Provider: Daniel Mancuso MD Provider: Lawson Godwin MD, Masoud Jun 26, 2017 14:13
--- NOTE | 2017-06-26 14:30 | NUR ---
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 Patient given PO Amoxicillin earlier. Primary RN called pharmacist prior to first dose. Pharmacist stated that because he had been given several doses of Zosyn IV and tolerated that okay, it would be okay to give PO Amoxicillin. Primary RN discussed this with patient. He verbalized understanding and said he felt fine, it was just a short time frame where he felt a little funny. VSS, will continue to monitor.
--- NOTE | 2017-06-26 14:41 | PCM.DC.MED ---
Discharge Summary Date of Service Jun 26, 2017 Dates of Hospitalization Date of Hospital Admission Jun 23, 2017 at 20:38 Date of Discharge: Jun 26, 2017 Providers: Admitting Physician: Kirill Villanueva MD Primary Care Physician: Daniel Mancuso MD Attending Physician: Ned Edwards Diagnosis at Time of Discharge Diagnosis at Time of Discharge # Acute diverticulitis and microperforation with associated abdominal pain. Present on admission. # Acute leukocytosis, present on admission. Resolved. # Reported Penicillin allergy. Tolerating Zosyn and Augmentin. # Nicotine dependence Consultations 1. Surgery (Dr. Godwin) Procedures XRay, CTs & MRIs Date of Service: 06/23/17 1834 PROCEDURE: CT ABDOMEN AND PELVIS WITH CONTRAST ([id number]) IMPRESSION: 1. Acute sigmoid diverticulitis with possible contained microperforation and associated phlegmon. Low-density within the sigmoid colonic wall may represent a small intramural abscess or further phlegmon. There are no drainable fluid collections. 2. Small bowel adynamic ileus. Dictated by: Wale Aguirre M.D. on 06/23/2017 at 19:24 Approved by: Wale Aguirre M.D. on 06/23/2017 at 19:31 Brief History As noted in H&P by Dr. Louise: Shreyas Rahman is a pleasant 37-year-old gentleman with history of diverticulitis , had recurrence of 2 weeks ago and treated with ciprofloxacin and metronidazole which he completed 2 days ago. He had recurrence of his left lower quadrant abdominal pain and this morning woke up experiencing suprapubic abdominal pain worse when he moved. He endorses loss of appetite, no longer lightheaded or dizzy, no chest pain, no shortness of breath, no numbness tingling weakness in his arms and legs, no dysuria no diarrhea or constipation. He received a CT scan in the emergency department which showed continued diverticulitis with possible contained microperforation and associated phlegmon , and small bowel adynamic ileus. Your white blood cell count 12.0, blood glucose of 103, lipase negative, liver enzymes normal, urinalysis negative for signs of infection, however was positive for 3-10 urine red blood cells under microscopy. Vitals are stable, afebrile. He denies any fevers or chills, no flank pain. Hospital Course # Acute diverticulitis, failure of outpatient treatment, present on admission, active. - CT scan of abdomen demonstrated microperforation continued diverticuli. - Appreciate surgery consult. - Treated with IV Zosyn during this hospital. - Per surgery patient will be discharged home with 10 more days of PO Augmentin - Patient tolerating both oral antibiotics as well as advanced diet # Acute leukocytosis, present on admission, Resolved - Attributed to diverticulitis as above. # Reported Penicillin allergy. Tolerating Zosyn and Augmenting during this hospital. # Nicotine dependence - Cessation discussed and encouraged per admit note Exam Vital Signs (Last) Date Time Temp Pulse Resp B/P Pulse Ox O2 Delivery O2 Flow Rate FiO2 06/26/17 13:20 36.7 61 18 138/93 95 Room Air Exam General: Alert, Cooperative, No Acute Distress Head: Normal Eyes: Scleral Anicteric Nose: Mucous Membr Moist/[place] Mouth: Mucous Membr Moist/[place] Neck: Supple Chest & Lungs: Chest Wall Normal. CTA bilat Cardiovascular: Regular Rate/Rhythm Abdomen: Tender to palpation, Non-distended, Normoactive bowel tones, Soft Extremities: No cyanosis/clubbing/edema bilat Neurological: Grossly Neurologically Intact, Normal Speech Test 06/23/17 17:11 06/23/17 17:30 06/24/17 08:00 06/25/17 07:10 Magnesium Level 2.1mg/dL (1.6-2.6) Lipase 31U/L (13-60) Hold Lujan Top Tube Received (Received) Urine Color Yellow (YELLOW) Urine Appearance Clear (CLEAR,HAZY) Urine pH 6.0 (5.0-8.0) Urine Specific [place] 1.025 (1.003-1.035) Urine Protein Tracemg/dL (NEG,TRACE) Urine Glucose (UA) Negativemg/dL (NEGATIVE) Urine Ketones Negativemg/dL (NEGATIVE) Urine Occult Blood Small (NEGATIVE) Urine Nitrite Negative (NEGATIVE) Urine Bilirubin Negative (NEGATIVE) Urine Urobilinogen Normalmg/dL (NORMAL) Urine Leukocyte Esterase Negative (NEGATIVE) Urine RBC 3-10/hpf (0-2) Urine WBC 0-5/hpf (0-5) Urine Epithelial Cells Occasional/hpf (NONE-MOD) Urine Crystals None seen (NONE SEEN) Urine Bacteria Few/hpf (NONE-FEW) Urine Hyaline Casts None/lpf (NONE) Urine Granular Casts None seen (NONE SEEN) Urine Waxy Casts None seen (NONE SEEN) Urine Red Blood Cell Casts None seen (NONE SEEN) Urine White Blood Cell Casts None seen (NONE SEEN) Urine Mucus Present (None Seen) Urine Trichomonas None seen (NONE SEEN) Urine Yeast None (NONE SEEN) Urinalysis Comment None Urine Culture Reflexed Not indicated Procalcitonin 0.02ng/mL (0.00-0.08) Neutrophils (%) (Auto) 60.4% (40-74) Lymphocytes (%) (Auto) 24.4% (14-46) Monocytes (%) (Auto) 12.7% (4-12) Eosinophils (%) (Auto) 1.9% (0-5) Basophils (%) (Auto) 0.4% (0-3) Sodium Level 137mEq/L (134-144) Potassium Level 4.4mEq/L (3.5-5.2) Chloride Level 102mEq/L (97-108) Carbon Dioxide Level 23mmol/L (18-29) Blood Urea Nitrogen 10mg/dL (6-20) Creatinine 1.12mg/dL (0.76-1.27) Estimat Glomerular Filtration Rate 78mL/min (>59) Glucose Level 75mg/dL (60-99) Calcium Level 8.6mg/dL (8.5-10.1) Total Bilirubin 0.7mg/dL (0.0-1.2) Aspartate Amino Transf (AST/SGOT) 14U/L (0-50) Alanine Aminotransferase (ALT/SGPT) 14U/L (0-44) Alkaline Phosphatase 43U/L (25-150) Total Protein 6.8g/dL (6.4-8.4) Albumin 3.7g/dL (3.4-5.0) Test 06/26/17 06:08 White Blood Count 8.7th/mm3 (3.8-10.1) Red Blood Count 4.57mil/mm3 (4.40-5.80) Hemoglobin 13.7g/dL (13.8-17.2) Hematocrit 40.5% (41.0-50.0) Mean Corpuscular Volume 88.6fL (81-100) Mean Corpuscular Hemoglobin 30.0pg (27.0-35.0) Mean Corpuscular Hemoglobin Concent 33.8% (32.0-37.0) Red Cell Distribution Width 11.8% (12.3-15.4) Platelet Count 320bil/L (150-400) Discharge Medications Discharge Medications Amoxicillin/Clav K 875-125 mg (Amoxicillin/Clav K 875-125 mg) 875 Mg Tab 1 TAB PO BID Prescribed by: NED EDWARDS MD Polyethylene Glycol 3350 (Miralax) 17 Gm Powd.pack 17 GM PO DAILY Prescribed by: NED EDWARDS MD As needed oxyCODONE-Acetaminophen 5-325 mg (oxyCODONE-Acetaminophen 5-325 mg) 1 Each Tablet 1-2 TAB PO Q4H PRN PRN For Pain Prescribed by: NED EDWARDS MD Followup Plan Disposition: Home Follow-up plan 1. Followup with primary care provider in 3-5 days 2. Followup with surgery (Dr. Godwin) in 1-[address] [address] Discharge Diet: No restrictions Discharge Activity: No restrictions Patient Instructions Seek immediate medical attention if any new or worsening signs or symptoms occur. Follow-up Provider: Daniel Mancuso MD Provider: Lawson Godwin MD Time spent 30 min copies to: Lawson Godwin MD; Daniel Mancuso MD, Masoud Jun 26, 2017 14:41
--- NOTE | 2017-06-26 15:06 | NUR ---
Social Work-discharge: Data:EMR reviewed. Pt is on day 3 of hospitalization for diverticulitis per H&P. Pt is medically stable for discharge. Pt resides at home with his and has been up independent in his room. No discharge needs identified. All updated and agreeable to plan. Assessment:Pt who is independent at baseline. Plan:Pt to discharge home today via POV. No discharge needs identified. All updated and agreeable to plan. OBEY Garcia
== END 2017-06-26 16:00 | disposition home or self-care (01) | DRG 392 ==
LOC: SED 16:50 → MOC 20:38
PROVIDERS: ADMIT Hospitalist; ATTEND Internal Medicine
DX: K57.20 Diverticulitis of large intestine with perforation and abscess without bleeding (principal); F17.200 Nicotine dependence, unspecified, uncomplicated; Z88.0 Allergy status to penicillin